=== PATIENT | male | born 1990 | race African-American/Black ===

== ENCOUNTER 2023-05-07 00:27 | Emergency (ER) | payer OTHER ==
[~2023-05-07] VITALS: Ht 188 cm; Wt 87.1 kg
[2023-05-07 00:39] VITALS: BP 140/92; PULSE 116; RESP 20; TEMP 98.7; O2SAT 98
[2023-05-07 01:09] LABS: BASOPHILS % 0.8 % (0.0-2.0); EOSINOPHILS % 6.2 % (0.0-5.0); HEMATOCRIT. 41.7 % (42.0-52.0); LYMPHOCYTES % 36.3 % (20.0-50.0); MEAN CORPUSCULAR HEMOGLOBIN 29.9 pg (28.0-32.0); MEAN CORPUSCULAR HGB CONC 33.5 g/dL (31.0-37.0); MEAN CORPUSCULAR VOLUME 89.1 fL (80.0-94.0); MONOCYTES % 7.5 % (2.0-8.0); NEUTROPHILS % 49.2 % (40.0-76.0); PLATELET 208 x1000/uL (130-400); RED BLOOD CELL COUNT 4.67 mill/uL (4.7-6.1); RED CELL DISTRIBUTION WIDTH 13.9 % (11.6-14.6); WHITE BLOOD COUNT 7.8 x1000/uL (4.5-11.0)
[2023-05-07 01:28] LABS: ALANINE AMINOTRANSFERASE 12 IU/L (10-49); ALBUMIN 4.8 g/dL (3.2-4.8); ASPARTATE AMINOTRANSFERASE 18 IU/L (<34); BILIRUBIN TOTAL 0.3 mg/dL (0.1-1.0); CALCIUM 9.2 mg/dL (8.7-10.4); CARBON DIOXIDE 26 mEq/L (21-32); CHLORIDE 103 mEq/L (98-107); GLUCOSE 160 mg/dL (70-105); POTASSIUM 3.4 mEq/L (3.5-5.1); PROTEIN TOTAL 8.1 g/dL (6.0-8.3); SODIUM 136 mEq/L (136-145); UREA NITROGEN BLOOD 11 mg/dL (9-23)
[2023-05-07 01:30] LABS: TROPONIN I HIGH SENSITIVITY < 4 ng/L (3.0-53)
== END 2023-05-07 03:00 | disposition left against medical advice (07) ==
LOC: ER 00:43
DX: R00.2 Palpitations (principal); Z53.21 Procedure and treatment not carried out due to patient leaving prior to being seen by health care provider
CPT/HCPCS: 36415; 71045; 80053; 83880; 84484; 85025; 93005; 99281; 99285